=== PATIENT | female | born 1980 | race Caucasian/White ===

== ENCOUNTER 2016-11-14 22:29 | Emergency (ER) | payer OTHER ==
[~2016-11-14 22:29] MED LIST: AUGMENTIN PO; BACTRIM 400-801 TA1 PO; BENADRYL25 MG PO; CLINDAMYCIN HC300 MG PO; IBUPROFEN800 MG PO; KEFLEX PO; KEFLEX500 M1 PO; LORCET 10/1 TAB 10/6 DOB; LORTAB 5/500 TA1 TA1 PO; LORTAB 7.5-3251 EACH PO; MOTRIN600 M1 PO; ORUDIS75 M1 PO; OXYCODONE-ACET1 EACH PO; PERCOCET 51 UDTAB 5/ PO; PHENERGAN25 MG PO; PREDNISONE PO; VIBRAMYCIN100 M1 PO; ZYRTEC10 M1 PO; ZYVOX600 MG PO
[2016-12-10] MEDS ORDERED: NO MEDICATIONS (14:05)
== END 2016-11-14 22:50 | disposition home or self-care (01) ==
LOC: SED 22:29
DX: L73.2 Hidradenitis suppurativa (principal); Z88.1 Allergy status to other antibiotic agents; Z88.2 Allergy status to sulfonamides
CPT/HCPCS: 99283

== ENCOUNTER → 2016-12-10 | Day surgery (SDC) | payer OTHER ==
[~2016-12-10] MED LIST changes: +NO MEDICATIONS
--- NOTE | ~2016-12-10 | OR ---
Unit #: [id number] #: [id number] Patient: NICHELLE SINGER [id number] [address] [place], [place] [address] [id number] O MR#: [id number] NAME: NICHELLE SINGER ROOM: Date of Procedure: 12/10/2016 Admission Date: 12/10/2016 Surgeon: Nelson Worthington Jr., M.D. : 1980 Attending Physician: Nelson Worthington Jr., M.D. Primary Care Physician: Fer Correia M.D. OPERATIVE REPORT INDICATIONS FOR PROCEDURE The patient is a 36-year-old white female, who recently presented to the office complaining of an infected cyst of the left perineal area involving the labia minora on the left. She has had drainage and chronic infection related to this and is brought in at this time for excision of this under anesthesia. The patient understands the procedure including the risks, including that of recurrence, numbness, and chronic infection and consents. 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 ANESTHESIA MAC anesthesia with 1% Xylocaine with epinephrine locally. PROCEDURE PERFORMED Excision of chronic inflamed cyst and tissue of the left labial area. DESCRIPTION OF PROCEDURE The patient was positioned in supine position. After being anesthetized, she was prepped and draped in routine fashion for excision of the chronic infected tissue of the left perineal area. An elliptical incision was made around the area after it was locally anesthetized with 0.5% Marcaine with epinephrine locally and the incision was carried down through the skin and subcutaneous tissue with a #10 blade scalpel. After the chronic inflamed cyst and surrounding tissue was removed, it was sent to pathology. Hemostasis was achieved with Bovie cautery. The deeper tissue approximated with interrupted 3-0 Vicryl sutures. Skin edges were approximated with continuous 5-0 nylon suture. Ointment and sterile dressing was applied externally. Estimated blood loss minimal, less than 10 mL. The patient received less than 1000 mL crystalloid solution during the procedure. Sponges and instruments counts were correct x3. No drains were used. No complications. The patient was taken to the recovery room with stable vital signs in satisfactory condition. Dictated by... Nelson Worthington Jr., M.D. Unit #: [id number] #: [id number] Patient: NICHELLE SINGER JULIANA/sherry TD: 12/10/2016 21:10 JOB #: [id number] CC: Fer Correia M.D. OPERATIVE REPORT Page 1 of 1 X Nelson Worthington MD X PROCEDURE OPERATIVE NOTE
== END | disposition home or self-care (01) ==
LOC: CSUR 05:48
DX: N76.2 Acute vulvitis (principal); J45.909 Unspecified asthma, uncomplicated; F17.210 Nicotine dependence, cigarettes, uncomplicated; Z88.1 Allergy status to other antibiotic agents; Z79.1 Long term (current) use of non-steroidal anti-inflammatories (NSAID); Z79.891 Long term (current) use of opiate analgesic; Z79.899 Other long term (current) drug therapy; Z90.49 Acquired absence of other specified parts of digestive tract
CPT/HCPCS: 84703; 88304; J1335; J2250; J2405; J3010; J3243

== ENCOUNTER 2017-01-09 20:13 | Emergency (ER) | payer OTHER | END 2017-01-09 20:20 | disposition home or self-care (01) | LOC: SED 20:13 | DX: L73.2 Hidradenitis suppurativa (principal); F17.200 Nicotine dependence, unspecified, uncomplicated; Z88.1 Allergy status to other antibiotic agents; Z88.2 Allergy status to sulfonamides | CPT/HCPCS: 99283 ==

== ENCOUNTER 2017-01-28 18:26 | Emergency (ER) | payer OTHER | END 2017-01-28 19:23 | disposition home or self-care (01) | LOC: SED 18:26 | DX: Z48.01 Encounter for change or removal of surgical wound dressing (principal); L02.411 Cutaneous abscess of right axilla; F17.200 Nicotine dependence, unspecified, uncomplicated; Z98.890 Other specified postprocedural states; Z90.49 Acquired absence of other specified parts of digestive tract; Z88.1 Allergy status to other antibiotic agents; Z88.2 Allergy status to sulfonamides; Z88.8 Allergy status to other drugs, medicaments and biological substances | CPT/HCPCS: 99281 ==

== ENCOUNTER 2017-02-14 19:31 | Emergency (ER) | payer OTHER | END 2017-02-14 21:47 | disposition left against medical advice (07) | LOC: CED 19:31 | DX: Z53.21 Procedure and treatment not carried out due to patient leaving prior to being seen by health care provider (principal) ==